=== PATIENT | female | born 1930 | race Caucasian/White ===

== ENCOUNTER 2019-08-12 11:26 | Inpatient (IN) | payer MEDICARE ==
[~2019-08-12] VITALS: Ht 167.6 cm; Wt 47.6 kg
[~2019-08-12 11:26] MED LIST: ASPI325 PO
[2019-08-12] MEDS ORDERED: GABA300 PO (12:24)
[2019-08-12] MEDS ORDERED: LEVSOD25 (12:24)
[2019-08-12 12:49] LABS: Hematocrit 49.6 % (33.0-51.0); Hemoglobin 16.7 g/dL (11.5-16.0); Mean Corpuscular HGB 29.6 pg (26.0-34.0); Mean Corpuscular HGB Conc 33.7 g/dL (31.5-36.5); Mean Corpuscular Volume 88 fL (80-100); RDW Standard Deviation 44.8 fL (35.1-46.3); Red Blood Cell Count 5.65 M/mm3 (3.80-5.20); White Blood Cell Count 32.24 K/mm3 (4.00-11.30)
[2019-08-12 12:50] LABS: Mean Platelet Volume 10.4 fL (9.1-12.4)
[2019-08-12 13:07] LABS: Alanine Aminotransfer (ALT/SGP 48 U/L (12-78); Albumin, Blood 3.4 g/dL (3.4-5.0); Albumin/Globulin Ratio 0.9 (0.8-1.8); Alk Phos 83 U/L (50-136); Anion Gap 7 mmol/L (6-16); Aspartate Aminotrans (AST/SGOT 139 U/L (12-37); Bilirubin, Total 1.1 mg/dL (0.1-1.0); Blood Urea Nitrogen 36 mg/dL (8-24); CO2, Blood 27 mmol/L (21-32); Calcium, Blood 9.2 mg/dL (8.5-10.1); Chloride, Blood 109 mmol/L (98-108); Creatinine, Blood 0.88 mg/dL (0.40-1.00); Globulin, Blood 3.9 g/dL (2.2-4.0); Glomerular Filtration Rate >60 (60-); Glucose, Blood 112 mg/dL (70-99); Potassium, Blood 4.3 mmol/L (3.5-5.5); Sodium, Blood 143 mmol/L (136-145); Total Protein, Blood 7.3 g/dL (6.4-8.2)
[2019-08-12 13:14] LABS: Creatine Kinase MB 29.8 ng/mL (0.0-3.6)
[2019-08-12] MEDS ORDERED: SYNTHROID50 MC1 PO (13:21)
[2019-08-12 13:43] LABS: BAND PERCENT MAN 2 % (0-8); BASOPHILS PERCENT MAN 0 % (0-2); EOSINOPHILS PERCENT MAN 0 % (0-6); LYMPHOCYTES ABSOLUTE MAN 15.47 K/mm3 (0.84-5.20); LYMPHOCYTES PERCENT MAN 48 % (21-46); MONOCYTES ABSOLUTE MAN 1.93 K/mm3 (0.16-1.47); MONOCYTES PERCENT MAN 6 % (4-13); NEUTROPHILS ABSOLUTE MAN 14.83 K/mm3 (1.96-9.15); SEG NEUTROPHILS PERCENT MAN 44 % (41-73); TOTAL CELLS COUNTED 100
[2019-08-12 13:46] LABS: Platelet Count 289 K/mm3 (150-400)
[2019-08-12 14:43] LABS: Bilirubin, Urine Neg (Neg); Blood, Urine 5+ (Neg); Glucose Qualitative, Urine Neg (Neg); Ketones, Urine 3+ (Neg); Leukocyte Esterase, Urine Neg (Neg); Nitrite, Urine Neg (Neg); Protein, Urine 2+ (Neg); Specific Gravity, Urine 1.025 (1.003-1.022); Urobilinogen, Urine 1+ (Normal)
[2019-08-12 14:51] LABS: Appearance, Urine Clear (Clear); Color, Urine Yellow (P-Yellow)
[2019-08-12 14:52] LABS: Amorphous Light (0-Heavy); White Blood Cells, Urine 0-2 /hpf (0-5)
[2019-08-12 14:53] LABS: Bacteria Few /hpf; Squamous Epithelial Cells Rare /hpf (Few)
--- NOTE | 2019-08-12 18:09 | NUR ---
SHIFT SUMMARY PT ARRIVED TO THE UNIT VIA STRETCHER FROM THE ED. SHE WAS ASSISTED TO BED AND ORIENTED TO ROOM AND STAFF. UPON ARRIVAL PT IS SHAKING,PALE, AND VERY STIFF AND PAINFUL WITH ANY MOVEMENT. O2 SAT WAS DIFFICULT TO OBTAIN AND RT BROUGHT AN EAR PROBE AND SHE IS SATING AT 91 % ON 2 LPM. SHE HAS A POZO IN PLACE. SHE WAS ASSISTED WITH A PARTIAL BED BATH SHE WAS MALODOROUS UPON ARRIVAL. DR HARRIS WAS NOTIFIED OF HER ARRIVAL AND CURRENT STATE AND CAME TO ASSESS THE PT AT THE BEDSIDE. PT HAS A LARGE BRUISE TO HER LEFT HIP AND LEFT SHOULDER ALONG WITH AN ABRASION TO HER LEFT HIP WHICH WAS PHOTOGRAPHED AND PUT IN CHART. ORDERED X RAYS REFLECTED IN HER CHART AND WE ARE AWAITING THEIR COMPLETION. SUCTION WAS SET UP AT BEDSIDE. PT WAS MADE NPO BY UNTIL SPEECH EVAL CAN BE COMPLETED. DNR ORDER WAS CONFIRMED WITH 2ND RN. HX WAS OBTAINED FROM DAUGHTER. PT WAS COVERED WITH WARM BLANKET WHICH HELPED WITH THE SHAKING BUT DID NOR COMPLETLY RESOLVE IT. SHE IS NOW RESTING IN BED. BED ALARM IS ON FOR SAFETY.
--- NOTE | 2019-08-13 04:24 | NUR ---
SUMMARY PT REMAINS CONFUSED. PT WAS GIVEN MEDS CRUSHED IN APPLESAUCE. PT DID REFUSE DAYANA PO MEDS. PT IS A ASPIRATION RISK AND WOULD BENEFIT W/ SPEECH EVAL. PT COMPLAINED OF MID BACK PAIN. PT STATES SHE DOES NOT KNOW IF IT IS CHRONIC OR NEW. PT GIVEN APAP W/ RELIEF. PT IS COOPERATIVE AND QUIET. PT IS FORGETFUL AND IS A HIGH FALL RISK. PT REMAINS IN SOFT WRIST RESTRAINTS. PT HAS WEAK COUGH AND HAS REQUIRES SUCTIONING TO CLEAR THROAT. PT HAS SLEPT OFF AND ON. PT CURRENTLY AWAKE AND IS QUIET. CALL LIGHT IN REACH AND BED ALARM ON. [facility]
[2019-08-13 05:23] LABS: Hematocrit 42.2 % (33.0-51.0); Hemoglobin 13.3 g/dL (11.5-16.0); Mean Corpuscular HGB Conc 31.5 g/dL (31.5-36.5); Mean Platelet Volume 10.1 fL (9.1-12.4); Platelet Count 194 K/mm3 (150-400); RDW Coefficient Variation 14.3 % (11.7-14.2); RDW Standard Deviation 47.8 fL (35.1-46.3); Red Blood Cell Count 4.59 M/mm3 (3.80-5.20); White Blood Cell Count 23.64 K/mm3 (4.00-11.30)
[2019-08-13 05:24] LABS: Mean Corpuscular Volume 92 fL (80-100)
[2019-08-13 05:40] LABS: Alanine Aminotransfer (ALT/SGP 34 U/L (12-78); Albumin, Blood 2.5 g/dL (3.4-5.0); Albumin/Globulin Ratio 0.8 (0.8-1.8); Alk Phos 52 U/L (50-136); Anion Gap 7 mmol/L (6-16); Aspartate Aminotrans (AST/SGOT 70 U/L (12-37); Bilirubin, Total 1.2 mg/dL (0.1-1.0); Blood Urea Nitrogen 32 mg/dL (8-24); Bun/Creatinine Ratio 32.6 (12.0-20.0); CO2, Blood 25 mmol/L (21-32); Calcium, Blood 7.9 mg/dL (8.5-10.1); Chloride, Blood 117 mmol/L (98-108); Creatinine, Blood 0.98 mg/dL (0.40-1.00); Glomerular Filtration Rate 57 (60-); Glucose, Blood 102 mg/dL (70-99); Sodium, Blood 149 mmol/L (136-145); Total Protein, Blood 5.5 g/dL (6.4-8.2); Vancomycin, Random 8.9 ug/mL
[2019-08-13 06:19] LABS: BAND PERCENT MAN 2 % (0-8); BASOPHILS PERCENT MAN 0 % (0-2); EOSINOPHILS PERCENT MAN 0 % (0-6); LYMPHOCYTES ABSOLUTE MAN 12.52 K/mm3 (0.84-5.20); LYMPHOCYTES PERCENT MAN 53 % (21-46); MONOCYTES ABSOLUTE MAN 1.18 K/mm3 (0.16-1.47); MONOCYTES PERCENT MAN 5 % (4-13); NEUTROPHILS ABSOLUTE MAN 9.92 K/mm3 (1.96-9.15); SEG NEUTROPHILS PERCENT MAN 40 % (41-73); TOTAL CELLS COUNTED 100
--- NOTE | 2019-08-13 08:05 | NUR ---
PT IS HAVING VERY WET SECRETIONS AND KEEP COUGHING AND HAVING A HARD TIME WITH THIS. PT IS NEEDING VERY FREQUENT SUCCIONING. DR FRANCI HARRIS NOTIFIED AND ST HAS BEEN ORDERED. PT WILL BE NPO UNTIL EVALUATED.
--- NOTE | 2019-08-13 17:08 | NUR ---
PT STARTED OUT SHIFT AOX1 AND STILL NEEDING RESTRAINTS. THE DAY PROGRESSED PT BECAME MUCH MORE ALERT UNTIL IT WAS DECIDED RESTRAINT ORDER WAS TO BE DC'D. ST EVALUATED PT AND NOW PT IS NPO PT IS HAVING A HARD TIME WITH DRY MOUTH STATES SHE WAS WATER SO BAD. LEMON SWABS ARE USED TO HELP MOISTURIZE HER MOUTH. PT STATES SHE JUST WANTS TO DRINK AND DOES NOT CARE IF SHE IS HAVING TROUBLE SWALLOWING.PT CAN NOW RECALL WHAT HAPPENED AT HER HOUSE AND SEEMS TO UNDERSTAND WHAT IS BEING SAID TO HER. PT WORKED WITH [employer] AND OT AND WAS A HEAVY ONE PERSON TO BEDSIDE COMMODE WITH [place]. PT STILL NOT USING CALL LIGHT AND WILL CALL OUT IF SHE WANTS SOMETHING. PT IS WATCHING TV AT THIS TIME. SÁNCHEZ IN PLACE CALL LIGHT WITHIN REACH WILL CONTINUE TO MONITOR.
--- NOTE | 2019-08-14 00:13 | NUR ---
PT. COUGHING AND NOTED TO HAVE LOTS OF SECRETIONS. PT. UNABLE TO COUGH UP ANY SPUTUM. ORAL SUCTIONING DONE AT THE BEDSIDE Q4HR AND PRN PER ORDER. DEEP NASAL SUCTIONING DONE BY RT. PT. NOTED TO HAVE BRIGHT RED BLOOD IN SUCTION CANISTER, APPEARS TO BE FROM RT NARE POST SUCTION. DR. LIU NOTIFIED OF PT. STATUS. PER PHYSICIAN WILL SEE WHAT CAN BE DONE FOR PT. PT. PLACED ON HUMIDIFIED O2. TOLERATING WELL. WILL CONT TO MONITOR.
--- NOTE | 2019-08-14 04:18 | NUR ---
SHIFT SUMMARY- PT. ALERT TO SELF WITH INTERMITTENT CONFUSION, HAS BEEN NPO THIS SHIFT. PT. COUGHING MOST OF THE NIGHT, ATTEMPTING TO COUGH UP SPUTUM BUT UNABLE TO. ORAL SUCTIONING DONE AT THE BEDSIDE WITH MINIMAL EFFECT. DEEP SUCTIONING DONE BY RT. PT. NOTED TO HAVE BRIGHT RED BLOOD IN SUCTION CANISTER, PER RT FROM THE RT NARE. HOSPITALIST WAS AMDE AWARE (SEE NEW ORDERS IN EMAR). PT. PLACED ON HUMIDIFIED O2. TOLERATING IV CLINIMIX WELL, DENIES ANY NEEDS AT THIS TIME. CALL LIGHT WITHIN REACH, SIDE RAILS WITHIN REACH, AND BED ALARM ON. WILL CONT TO MONITOR.
[2019-08-14 04:45] LABS: Hematocrit 37.7 % (33.0-51.0); Mean Corpuscular HGB 29.7 pg (26.0-34.0); Mean Corpuscular HGB Conc 31.8 g/dL (31.5-36.5); Mean Corpuscular Volume 93 fL (80-100); Mean Platelet Volume 9.7 fL (9.1-12.4); Platelet Count 176 K/mm3 (150-400); RDW Coefficient Variation 14.5 % (11.7-14.2); RDW Standard Deviation 50.2 fL (35.1-46.3); Red Blood Cell Count 4.04 M/mm3 (3.80-5.20); White Blood Cell Count 17.24 K/mm3 (4.00-11.30)
[2019-08-14 05:04] LABS: Alanine Aminotransfer (ALT/SGP 29 U/L (12-78); Albumin, Blood 2.2 g/dL (3.4-5.0); Albumin/Globulin Ratio 0.7 (0.8-1.8); Alk Phos 48 U/L (50-136); Anion Gap 6 mmol/L (6-16); Aspartate Aminotrans (AST/SGOT 38 U/L (12-37); Bilirubin, Total 0.7 mg/dL (0.1-1.0); Blood Urea Nitrogen 33 mg/dL (8-24); Bun/Creatinine Ratio 42.5 (12.0-20.0); CO2, Blood 25 mmol/L (21-32); CPK Creatine Kinase 406 U/L (26-193); Calcium, Blood 8.2 mg/dL (8.5-10.1); Chloride, Blood 117 mmol/L (98-108); Creatinine, Blood 0.78 mg/dL (0.40-1.00); Glomerular Filtration Rate >60 (60-); Glucose, Blood 109 mg/dL (70-99); Potassium, Blood 3.5 mmol/L (3.5-5.5); Sodium, Blood 148 mmol/L (136-145); Total Protein, Blood 5.2 g/dL (6.4-8.2)
[2019-08-14 05:19] LABS: BASOPHILS PERCENT MAN 0 % (0-2); EOSINOPHILS ABSOLUTE MAN 0.17 K/mm3 (0.00-0.68); EOSINOPHILS PERCENT MAN 1 % (0-6); LYMPHOCYTES ABSOLUTE MAN 8.79 K/mm3 (0.84-5.20); LYMPHOCYTES PERCENT MAN 51 % (21-46); MONOCYTES ABSOLUTE MAN 0.86 K/mm3 (0.16-1.47); MONOCYTES PERCENT MAN 5 % (4-13); NEUTROPHILS ABSOLUTE MAN 7.41 K/mm3 (1.96-9.15); SEG NEUTROPHILS PERCENT MAN 43 % (41-73); TOTAL CELLS COUNTED 100
--- NOTE | 2019-08-14 06:18 | NUR ---
PT. COUGHING UP BLOOD. C/O PAIN IN THROAT. CALLED DR. LIU AND MADE AWARE. NEW ORDERS RECEIVED. WILL CONT TO MONITOR.
--- NOTE | 2019-08-14 17:37 | NUR ---
SHIFT SUMMARY PT HAS BEEN SLEEPING OFF AND ON THIS SHIFT. PT MORE CONFUSED THIS AFTERNOON/EVENING AND YELLING OUT FOR DAUGHTER. THIS RN REORIENTED PT TO TIME AND PLACE. ORAL CARE PRN WITH SUCTION SWABS. POZO PATENT AND DRAINING. NO ACUTE CHANGES AT THIS TIME. WILL CONTINUE TO MONITOR PT. CALL LIGHT IN REACH. BED ALARM ON FOR SAFETY. WILL CONTINUE TO MONITOR.
--- NOTE | 2019-08-15 04:19 | NUR ---
SHIFT SUMMARY PT REMAINS CONFUSED THIS EVENING. CONFUSION SLIGHTLY WORSE LATER IN THE EVENING. PT BELIEVED SHE WAS AT HOME AND WHEN ATTEMPTING TO REORIENT PT ONLY SAID, "I DON'T BELIEVE YOU". PT HAVING LARGE AMOUNT OF SECRETIONS. FREQUENT SUCTIONING REQUIRED. ORAL CARE PREFORMED WELL THROUGHOUT THE NIGHT. PT FREQEUNTLY ASKS FOR SOMETHING TO DRINK OR EAT. UPSET THAT SHE CANNOT EVEN AFTER EDUCATING ON REASONING. POZO CATHETER IN PLACE. PATENT AND DRAINING. PT HAS SCATTERED BUMPS AND BRUISES THROUGHOUT HER BODY. PT REMAINED ON 2 L O2 NC WITH O2 SATS IN THE LOW TO MID 90'S. NO COMPLAINTS OF PAIN. VITAL SIGNS STABLE. WILL CONTINUE TO MONITOR AND REPORT TO DAY RN.
[2019-08-15 04:32] LABS: BASOPHILS ABSOLUTE AUTO 0.04 K/mm3 (0.00-0.23); BASOPHILS PERCENT AUTO 0 % (0-2); EOSINOPHILS ABSOLUTE AUTO 0.09 K/mm3 (0.00-0.68); EOSINOPHILS PERCENT AUTO 1 % (0-6); Hematocrit 41.5 % (33.0-51.0); Hemoglobin 12.9 g/dL (11.5-16.0); Mean Corpuscular HGB 28.7 pg (26.0-34.0); Mean Corpuscular HGB Conc 31.1 g/dL (31.5-36.5); Mean Corpuscular Volume 92 fL (80-100); Mean Platelet Volume 9.6 fL (9.1-12.4); Platelet Count 158 K/mm3 (150-400); RDW Coefficient Variation 14.3 % (11.7-14.2); RDW Standard Deviation 48.1 fL (35.1-46.3); Red Blood Cell Count 4.49 M/mm3 (3.80-5.20); White Blood Cell Count 19.63 K/mm3 (4.00-11.30)
[2019-08-15 04:41] LABS: IMMATURE GRAN ABSOLUTE AUTO 0.12 K/mm3 (0.00-0.10); IMMATURE GRAN PERCENT AUTO 1 % (0-1); LYMPHOCYTES ABSOLUTE AUTO 9.01 K/mm3 (0.84-5.20); LYMPHOCYTES PERCENT AUTO 46 % (21-46); MONOCYTES ABSOLUTE AUTO 1.27 K/mm3 (0.16-1.47); MONOCYTES PERCENT AUTO 7 % (4-13); NEUTROPHILS PERCENT AUTO 46 % (41-73)
[2019-08-15 04:52] LABS: Alanine Aminotransfer (ALT/SGP 31 U/L (12-78); Albumin, Blood 2.3 g/dL (3.4-5.0); Albumin/Globulin Ratio 0.7 (0.8-1.8); Alk Phos 76 U/L (50-136); Anion Gap 10 mmol/L (6-16); Aspartate Aminotrans (AST/SGOT 34 U/L (12-37); Bilirubin, Total 1.2 mg/dL (0.1-1.0); Blood Urea Nitrogen 20 mg/dL (8-24); Bun/Creatinine Ratio 27.6 (12.0-20.0); CO2, Blood 23 mmol/L (21-32); Calcium, Blood 7.9 mg/dL (8.5-10.1); Chloride, Blood 115 mmol/L (98-108); Creatinine, Blood 0.72 mg/dL (0.40-1.00); Globulin, Blood 3.5 g/dL (2.2-4.0); Glomerular Filtration Rate >60 (60-); Glucose, Blood 85 mg/dL (70-99); Potassium, Blood 3.5 mmol/L (3.5-5.5); Sodium, Blood 148 mmol/L (136-145); Total Protein, Blood 5.8 g/dL (6.4-8.2)
--- NOTE | 2019-08-15 11:56 | NUR ---
Tele: SVT 150's Received call from [employer] RE 20 second SVT in 150's. Dr. Otoole notified, no change in patient condition. Per Dr. Otoole, telemetry can be d/c due to patient transitioning to comfort care.
--- NOTE | 2019-08-15 13:26 | NUR ---
SUCTIONING PROVIDED, NECTAR AND HONEY THICKENED FLUIDS PROVIDED PO. FOLLOWING DIRECTIONS WITH SWALLOWING WELL. PATIENT APPEARS TO HAVE MINIMAL ASPIRATION WHEN FOLLOWING DIRECTIONS (SMALL SIPS, CHIN TUCK, AND HEAD TURNED TO LEFT).
--- NOTE | 2019-08-15 14:48 | NUR ---
Pt sitting up in bed splinting her side. very anxious and painfull. Wants to take sips but coughs it up. Assisted nursing with prn pain meds. did oral care gave pt flozvored swabs so she can get some taste and hydration. pt neck tight assited with positioning. May need a consistant dosing to get pain at an acceptable level will reassess. theraputic tiem with pt reminissing and looking out the window. put her cardenas where se can see them for some diversion.
--- NOTE | 2019-08-15 16:00 | NUR ---
MEDICATED FOR PAIN, SUCTION AND ORAL SWABS FOR SECRETIONS. REPOSITION TOLERATED.
--- NOTE | 2019-08-15 17:14 | NUR ---
Medicated for pain and nausea per EMAR. Patient had bedbath, cath care, attends changed, pericare, shampoo, and repositioned x 2 assist. Palliative Care RN Theodora at bedside. Oral care provided and suctioned.
--- NOTE | 2019-08-15 17:35 | NUR ---
pt having some mild nausea. and still some discomfort. rectal tylenol given and nausea meds. Review with nursing may need more roxinal to facilitate cough. Nausea may be from narcotics or increased coughing she is getting up some thick secretions. pt very fragile they are having to position her carefully.
--- NOTE | 2019-08-15 18:33 | NUR ---
Shift Summary A/O to self and family. Patient does not fully comprehend the reason for her admission stating that her daugter brought her in for unknown reasons. Tele has been d/c'd. C/o pain throughout body, medicated per EMAR with good results. Patient continues to aspirate even on honey thick liquids, less so when highly supervised and cued. Oral care has been completed and suction as needed. Patient has poor cough reflex and unable to cough up much, lung sounds are coarse and wet. Comfort care, will continue to monitor.
--- NOTE | 2019-08-16 04:25 | NUR ---
SHIFT SUMMARY PT PLEASANTLY CONFUSED. PT DID NOT KNOW WHERE SHE WAS AT AND MULTIPLE TIMES STATED, "I DONT WANT TO BE HERE". ATTEMPTED TO PROVIDE HONEY THICK LIQUIDS TO PT. PT DID NOT TOLERATE VERY WELL. WITH MOST SWALLOWS PT WOULD COUGH AND CHOKE ON THE LIQUID. PT SUCTIONED NEEDED. MEDICATED X 1 W/ 10 MG ROXICODONE FOR REPORTED PAIN. OTHERWISE PT SLEPT THROUGH MOST OF THE NIGHT AND APPEARED COMFORTABLE. NO ACUTE CHANGES THIS SHIFT. WILL CONTINUE TO MONITOR.
--- NOTE | 2019-08-16 07:00 | NUR ---
ASSUMED CARE OF PT- BEDSIDE REPORT COMPLETED WITH NIGHT RN LALITA. PER REPORT PT WAS MEDICATED JUST PRIOR TO SHIFT CHANGE FOR PAIN. PT SLEEPING BUT WOKE TO STAFF VOICES. STATED PAIN, BUT WENT BACK TO SLEEP IN MOMENTS. WILL CTM. PT APPEARS COMFORTABLE AND AT REST AT SHIFT CHANGE
--- NOTE | 2019-08-16 09:15 | NUR ---
PT C/O PAIN AND APPEARS TO BE IN 8/10 PAIN MEDICATED WITH OXY 10MG DOSE RECOMENDED BY PRIOR RN.
--- NOTE | 2019-08-16 10:55 | NUR ---
Review with nursing pts pain response and needs. will follow up with family.
--- NOTE | 2019-08-16 11:15 | NUR ---
PT PAIN STILL NOT WELL MANAGED WITH A SECOND DOSE OF OXY AT 10MG. MEDICATED WITH TYLENOL SUPPOSITORY AND REPOSITIONED PT FOR COMFORT.
--- NOTE | 2019-08-16 12:20 | NUR ---
MEDICATED PT WITH OXY, INCREASED TO DOSE TO 15MG PT STILL IN PAIN SAYING "I'LL BE GOOD" "PLEASE, ANYTHING THAT WILL HELP." REPOSITIONED PT ON MULTIPLE PILLOWS AFTER MEDICATION WAS ADMINISTERED (ABOUT 1300). PT STATED SHE WAS COMFORTABLE AFTER THE REPOSITION, WILL CTM.
--- NOTE | 2019-08-16 14:18 | NUR ---
Review of pt pain and symtpoms with physician. Will add toradol. and look at poistioning.
--- NOTE | 2019-08-16 14:45 | NUR ---
attempted to call family with update
--- NOTE | 2019-08-16 16:00 | NUR ---
PT SLEEPING SOUNDLY, RESP E/U ON ROOM AIR. PT APPEARS PALE BUT NO MODELING IS NOTED AT THIS TIME. APPEARS TO BE RESTING COMFORTABLY.
--- NOTE | 2019-08-16 16:40 | NUR ---
PT SLEEPING SOUNDLY AND MOANING IF IN PAIN. WOKE HER TO DETERMINE IF HER PAIN REQUIRED PAIN MEDICATION AGAIN. PT WOKE AND STATED SHE FEELS BETTER RIGHT NOW AND HER PAIN IS OK. APPOLOGIZED FOR WAKING HER. WILL CTM. PT PHONE HAD RANG EARLIER AND SHE STATED TO STAFF THAT SHE DOES NOT WANT TO TALK TO ANYONE RIGHT NOW. PAIN APPEARS WELL MANAGED AT THIS TIME WILL CTM.
--- NOTE | 2019-08-16 16:52 | NUR ---
spoke with patients daughters and updated them with plan of care. Review with [place] director career services discharge plan.
--- NOTE | 2019-08-16 18:00 | NUR ---
PT AWAKE AND STATED THAT SHE IS BEGINING TO HURT AGAIN IN HER RIGHT CHEST. PT ASKED FOR MORE PAIN MEDICATION AT THIS TIME TO PREVENT IT FROM GETTING WORSE. MEDICATED WITH 10 MG SL OXY PAIN IS MORE CONTROLED AT THIS TIME THAN IT WAS PRIOR. PT GRIMACED WHEN SHE MOVED SO STAFF WILL WAIT FOR MEDICATION TO WORK THEN WE WILL REPOSITION HER.
--- NOTE | 2019-08-16 19:24 | NUR ---
PT WOKE TO STAFF VOICES. BEDSIDE REPORT COMPLETED WITH NIGHT VIJI COBIAN. PT PAIN AGAIN SEEMS TO BE WELL MANAGED. PT REPOSITIONED TO LEFT BACK. MULTIPLE PILLOWS IN PLACE. PT ATTEMPTED TO CALL HER DAUGHTER THERE WAS NO ANSWER AND SHE DECLINED TO LEAVE A MESSAGE.
--- NOTE | 2019-08-17 06:43 | NUR ---
SHIFT SUMMARY PATIENT WAS ABLE TO SLEEP COMFORTABLY MOST OF THE NIGHT. ONLY NEEDED TO BE MEDICATED ONCE FOR PAIN AND DID NOT HAVE ANY ISSUES BREATHING. REQUIRED NO SUCTIONING OVERNIGHT. IV PATENT AND FLUSHED. BED IN LOWEST POSITION WITH WHEELS LOCKED AND ALARM ON. CALL LIGHT WITHIN REACH. REPORT GIVEN TO ONCOMING RN.
--- NOTE | 2019-08-17 07:50 | NUR ---
CC ASSESSMENT: MEDICATED FOR PAIN PER EMAR. NO DYSPNEA/SOB/SECRETIONS. NO FAMILY PRESENT. WCTM.
--- NOTE | 2019-08-17 10:02 | NUR ---
CC ASSESSMENT: MEDICATED FOR PAIN PER EMAR. NO DYSPNEA/SOB/SECRETIONS. NO FAMILY PRESENT. WCTM.
--- NOTE | 2019-08-17 12:54 | NUR ---
CC ASSESSMENT: PT IN NO AO APPRENT DISTRESS. NO DYSPNEA/SOB/SECRETIONS. NO FAMILY PRESENT. WCTM.
--- NOTE | 2019-08-17 15:05 | NUR ---
CC ASSESSMENT: PT IN NO APPARENT DISTRESS. NO DYSPNEA/SOB/SECRETIONS. NO FAMILY PRESENT. WCTM.
--- NOTE | 2019-08-17 15:06 | NUR ---
CC ASSESSMENT: MEDICATED FOR ANXIETY PER EMAR. NO DYSPNEA/SOB/SECRETIONS. NO FAMILY PRESENT. WCTM.
--- NOTE | 2019-08-17 17:07 | NUR ---
CC ASSESSMENT: PT IN NO APPARENT DISTRESS. NO DYSPNEA/SOB/SECRETIONS. NO FAMILY PRESENT. WCTM.
--- NOTE | 2019-08-17 18:45 | NUR ---
SHIFT SUMMARY: NO ACUTE CHANGES TO REPORT THIS SHIFT. COMFORT CARE MEASURES CONTINUING. MEDICATED FOR PAIN & ANXIETY PER EMAR. WCTM.
--- NOTE | 2019-08-18 07:10 | NUR ---
SHIFT SUMMARY PATIENT ABLE TO SLEEP WELL MOST OF THE NIGHT. WOKE UP AROUND 0550 AGGITATED. MEDICATED PATIENT PER EMAR FOR ANXIETY. IV PATENT AND FLUSHED. BED IN LOWEST POSITION WITH WHEELS LOCKED. CALL LIGHT WITHIN REACH. REPORT GIVEN TO ONCOMING VIJI.
--- NOTE | 2019-08-18 07:56 | NUR ---
CC ASSESSMENT: NO C/O PAIN / PT IN NO APPARENT DISTRESS. NO DYSPNEA/SOB/SECRETIONS. POZO PATENT & DRAINING. NO FAMILY PRESENT. WCTM.
--- NOTE | 2019-08-18 13:04 | NUR ---
CC ASSESSMENT: NO C/O PAIN. NO DYSPNEA/SOB/SECRETIONS. NO FAMILY PRESENT. WCTM.
--- NOTE | 2019-08-18 13:04 | NUR ---
CC ASSESSMENT: PT IN NO APPARENT DISTRESS. NO DYSPNEA/SOB/SECRETIONS. NO FAMILY PRESENT. WCTM.
--- NOTE | 2019-08-18 17:22 | NUR ---
CC ASSESSMENT: NO C/O PAIN / PT IN NO APPARENT DISTRESS. NO DYSPNEA/SOB/SECRETIONS. NO FAMILY PRESENT. WCTM.
--- NOTE | 2019-08-18 17:23 | NUR ---
CC ASSESSMENT: PT IN NO APPARENT DISTRESS. NO DYSPNEA/SOB/SECRETIONS. NO FAMILY PRESENT. WCTM.
--- NOTE | 2019-08-18 17:25 | NUR ---
CC ASSESSMENT: MEDICATED FOR PAIN PER EMAR. NO DYSPNEA/SOB/SECRETIONS. NO FAMILY PRESENT. WCTM.
--- NOTE | 2019-08-18 19:11 | NUR ---
Clinical Visit: Pt is displaying several signs of discomfort at time of visit. She reports that she has "a little" pain. She is uncomfortable in bed and would like to turn and reposition. Assisted Ilya, nurse, with repositioning. He administers 20mg roxanol. Pt shows signs of reduction in discomfort and improved pain level.
--- NOTE | 2019-08-18 19:35 | NUR ---
SHIFT SUMMARY: NO ACUTE CHANGES TO REPORT THIS SHIFT. COMFORT CARE MEASURES CONTINUING. MEDICATED FOR PAIN & ANXIETY PER EMAR. LIDOCAINE PATCH TO R RIBS. REPORT GIVEN TO ONCOMING RN.
--- NOTE | 2019-08-18 19:42 | NUR ---
PATIENT SLEEPING IN HER BED AND APPEARS COMFORTABLE WITH NO SIGNS OF PAIN OR DIFFICULTY BREATHING.
--- NOTE | 2019-08-18 22:21 | NUR ---
PATIENT'S ATTENDS CHANGED, ALEXANDRU CARE AND CATH CARE COMPLETED. PATIENT REPOSITIONED.
--- NOTE | 2019-08-19 04:36 | NUR ---
PATIENT WOKE UP AND WAS TALKING TO THIS RN. SHE HAD NO COMPLAINTS OF PAIN AND SEEMED COMFORTABLE.
--- NOTE | 2019-08-19 05:58 | NUR ---
SHIFT SUMMARY PATIENT SLEPT MOST OF THE NIGHT AND WAS COMFORTABLE. PATIENT HAD NO COMPLAINT OF PAIN AND DID NOT NEED ANY PRN MEDICATION. IV PATENT AND FLUSHED. BED IN LOWEST POSITION WITH WHEELS LOCKED AND ALARM ON. CALL LIGHT WITHIN REACH. REPORT GIVEN TO ONCOMING RN.
--- NOTE | 2019-08-19 10:14 | NUR ---
PT RESTING IN BED WITH EYES CLOSED.
--- NOTE | 2019-08-19 11:29 | NUR ---
PT REPORTING DRY MOUTH, PT GIVEN FOAM MOUTH SWAB WITH WATER ON IT. PT REPORTS THIS HELPING. LIDOCAINE PATCH PLACED FOR PAIN ON RIGHT CHEST WALL. BED IN LOWEST POSITION WITH BED ALARM ON.
--- NOTE | 2019-08-19 12:54 | NUR ---
LATE ENTRY FOR MORNING ASSESSMENT AT 0900. LUNGS ARE DIMINISHED BUT CLEAR. PT RESTING COMFORTABLE IN BED. NO EDEMA NOTED. IV FLUSHED WITH 10ML NORMAL SALINE AND IS WNL. IV HAS WINDOW DRESSING. BED IN LOWEST POSITION WITH BED ALARM ON.
--- NOTE | 2019-08-19 13:34 | NUR ---
PT RESTING IN BED WITH EYES CLOSED. BED ALARM ON, CALL LIGHT IN REACH.
--- NOTE | 2019-08-19 16:07 | NUR ---
Initial spiritual care note: Mrs. Rodriguez was minimally responsive. She complained of pain and thirst. Provided sponge to moisten mouth. Barely wet at all. She choked on this small amount. She was in and out of sleep and far too weak to engage in meaningful conversation. She appears quite frail. Prayer provided with Aretha's permission. Informed RN of pt's pain. I will remain available to pt and family.
--- NOTE | 2019-08-19 16:47 | NUR ---
Comfort Measures: Pt is sitting up in bed. She is being supervised by nurse, Donavan, while she is self suctioning. No s/s of distress noted at this time, no concerns from nursing. Reviewed chart. D/C'd routine medications that have not been given for several days. Reviewed notes. Palliative care to remain available.
--- NOTE | 2019-08-19 17:57 | NUR ---
LATE ENTRY FOR 1730 PT'S FAMILY ARRIVED AND ARE CURRENTLY AT THE PT'S BEDSIDE. PT DENIES ANY PAIN AT OR NAUSEA AT THIS TIME. PT'S FAMILY EDUCATED ON ROOM AND CALL LIGHT. FAMILY MEMBERS DENY ANY NEEDS AT THIS TIME. CALL LIGHT IS WITHIN REACH.
--- NOTE | 2019-08-19 18:25 | NUR ---
SHIFT SUMMARY: PT SLEEPING COMFORTABLY FOR MOST OF THE DAY. PT MEDICATED PER EMAR FOR PAIN REPORTED THROUGHOUT THE DAY. PT ALSO GIVEN LORAZEPAM FOR RESTLESSNESS THIS AM. PT'S FAMILY ARRIVED THIS EVENING AND ARE AT THE BEDSIDE WITH PT. BED BATH GIVEN TO PT TODAY. LIDOCAINE PATCH ALSO PLACED ON PT'S RIGHT CHEST WALL FOR PAIN. NO NAUSEA REPORTED.
--- NOTE | 2019-08-19 20:50 | NUR ---
RESTING QUIETLY AT THIS TIME. DAUGHTERS WENT HOME. CALL LIGHT IN REACH
--- NOTE | 2019-08-19 21:10 | NUR ---
ASSISTED BACK INTO BED (LEGS HANGING OUT OF BED) CONFUSED. REPOSITIONED. BED ALARM ON. QUICK TO GO BACK TO SLEEP. CALL LIGHT IN REACH
--- NOTE | 2019-08-19 22:32 | NUR ---
RESTING QUIETLY. CALL LIGHT IN REACH
--- NOTE | 2019-08-20 04:00 | NUR ---
SHIFT SUMMARY PT REMAINS ON COMFORT CARE, WAS AWAKE ERALIER IN THE SHIFT AND MADE ATTEMPT TO GET OUT OF BED. VOICED PAIN, RECEIVED ANALGESIC PER MD ORDERS - SEE MAR FOR DETAILS. MED EFFECTIVE, HAS BEEN RESTING QUIETLY AFTERWARDS. CALL LIGHT IN REACH. POZO DRAINING.
--- NOTE | 2019-08-20 06:10 | NUR ---
AWAKE AT INTERVALS. CALL LIGHT IN REACH
--- NOTE | 2019-08-20 14:54 | NUR ---
sat pt up to edge of bed with good tolerance. pain better controlled. pt very weak pt back to bed and fell asleep. plan is home tomorrow
--- NOTE | 2019-08-20 15:46 | NUR ---
Routine spiritual care note: I met with pt's dtr, Ebonie, at bedside. She was giving her mother sips of water, and pt coughed/choked upon every small swallow. Still, pt insisted she wanted more. Ciara appears devoted and reports a strong derick. she admits concern regarding pt's salvation. Provided gentle spiritual direction on God's jacqueline at end of life. Prayer also offered and accepted. Ebonie is busy preparing pt's home for her return tomorrow. Pt appears quite frail and confused. She denied pain. I will remain available.
--- NOTE | 2019-08-20 18:10 | NUR ---
COMFORT CARE SHIFT SUMMARY PATIENT MEDICATED X3 FOR PAIN. NEW ORDERS FOR FENTANYL PATCH AND ADDITIONAL LIDOCAINE PATCH TO SACRUM. POZO PATENT AND DRAINING. FAMILY VISITED TODAY. HOSPICE DISCHARGE PLANNED FOR MONDAY. CALL LIGHT IN REACH.
--- NOTE | 2019-08-21 02:40 | NUR ---
COMFORT CARE 0240 APPEARS TO BE COMFORTABLE AND RESTING. BED IN LOWEST POSITION; ALARM ON. CALL LIGHT AND SUCTION WITHIN REACH. WCTM.
--- NOTE | 2019-08-21 05:12 | NUR ---
SHIFT SUMMARY NO ACUTE CHANGES OVERNIGHT. PT HAS PERIODS OF ANXIETY WHERE SHE CALLS OUT, AND ATTEMPTS TO CLIMB OUT OF BED BY SWINGING HER LEGS OFF OF THE SIDE OF THE BED. SHE REPEATS A LOT THROUGH THE NIGHT "I WANT TO GET OUT OF HER". PT IS DIFFICULT TO REDIRECT AND ORIENT AT TIMES. PT REPORTS PAIN IN HER UPPER CHEST AND RIGHT SIDE. MEDICATED PER EMAR WITH AFFECT. PT ALSO MEDICATED PRN FOR ANXIETY. SOME SKIN BREAKDOWN NOTED ON LEFT HIP AND NEAR HER COCCYX THIS SHIFT. MEPILEX PLACED. POZO IN PLACE PATENT AND DRAINING. COMFORT ASSESSED T/O SHIFT, AND PT REPOSITIONED FREQUENTLY. NO CALLS FROM FAMILY THIS SHIFT. BED IN LOWEST POSITION, CALL LIGHT WITHIN REACH. WILL CONTINUE TO MONITOR AND REPORT TO ONCOMING RN.
--- NOTE | 2019-08-21 14:30 | NUR ---
Pt resting finally able to lay on her right side.
--- NOTE | 2019-08-21 16:32 | NUR ---
Routine spiritual care note: Aretha appears more frail today. She awakened easily to voice, smiled easily, but did not seem to be able to engage in conversation. She denies pain/fear. Prayer for peace provided. Director Of Vocational Guidance services will remain available.
--- NOTE | 2019-08-21 18:07 | NUR ---
SHIFT SUMMARY MEDICATED FOR PAIN AND ANXIETY SEVERAL TIMES TODAY. FAMILY IN TO SEE PT. PT CALM WHILE FAMILY AT BEDSIDE. FENTANYL PATCH FELL OFF THIS MORNING AND NEW PATCH APPLIED. COUGHING WITH ANY SIP OF LIQUID OR BITE OF FOOD. SUCTIONED NEEDED. REPOSITIONED FOR COMFORT.
--- NOTE | 2019-08-21 18:35 | NUR ---
family in to see patient. Filemon at her decline. Review of her care and tolerance. theraputic time with family to they expressed stress and frustration. Reviewed her lack of tolerance of po intak and pain needs. They are expressing family stress at her daughter not sharing information. Advised then on contacting her hospice team to help with visitation and family discord. left them to visit with her.
--- NOTE | 2019-08-21 20:05 | NUR ---
COMFORT CARE APPEARS TO BE UNCOMFORTABLE UPON ENTRY. STATES PAINFUL; MEDICATED PER EMAR. ORAL CARE COMPLETED. HAS SUCTION ON HAND. BED IN LOWEST POSITION. CALL LIGHT IN REACH. WCTM.
--- NOTE | 2019-08-21 22:20 | NUR ---
COMFORT CARE 2220 APPEARS TO BE UNCOMFORTBALE. MEDICATED PER EMAR. NO ACUTE CHANGES AT THIS TIME. BED IN LOWEST; ALARM ON. CALL LIGHT WITHIN REACH. WCTM.
--- NOTE | 2019-08-22 00:38 | NUR ---
COMFORT CARE 0038 APPEARS TO BE RESTING. NO ACUTE CHANGES AT THIS TIME. BED IN LOWEST POSITION. CALL LIGHT WITHIN REACH. TM.
--- NOTE | 2019-08-22 04:40 | NUR ---
COMFORT CARE APPEARS TO BE RESTING. NO ACUTE CHANGES NOTED AT THIS TIME. BED IN LOWEST POSITION; ALARM ON. CALL LIGHT AND SUCTION WITHIN REACH. TM.
--- NOTE | 2019-08-22 05:08 | NUR ---
SHIFT SUMMARY ALERT, ANSWERS QUESTIONS APPROPRIATELY. SLOW TO RESPOND. ABLE TO MAKE NEEDS KNOWN. C/O PAIN/DISCOMFORT TO CHEST/NECK; MEDICATED PER EMAR. APPEARED TO REST MUCH OF NIGHT. ORAL CARE COMPLETED. REPOSITIONED T/O SHIFT. NO ACUTE CHANGES NOTED. BED IN LOWEST POSITION; ALARM ON. CALL LIGHT, BELONGINGS AND SUCTION WITHIN REACH. WCTM. REPORT TO ONCOMING RN.
[2019-08-22] MEDS ORDERED: ATROPINE SULFATE2 ML SL (08:34)
[2019-08-22] MEDS ORDERED: LIDOCAINE PAIN1 EACH TOP (08:35)
[2019-08-22] MEDS ORDERED: Ativan1 MG SL (08:36)
[2019-08-22] MEDS ORDERED: OXYCODONE10 MG/0.5 SL (08:51)
[2019-08-22] MEDS ORDERED: FENT50TP TOP (08:52)
[2019-08-22] MEDS ORDERED: Transderm-Scop1 EACH TOP (08:52)
--- NOTE | 2019-08-22 10:10 | NUR ---
PT REPOSITIONED, BRIEF CHANGED AND POZO BAG CHANGED. THIS NURSE PLACED A 50MG PATCH PLACED ON LEFT UPPER CHEST, LIDOCAINE PATCH PLACED OF RIGHT HIP AND ONE LIDOCAINE PATCH PLACED ON LEFT POSTERIOR SHOULDER. ORAL CARE PERFORMED AND ORAL PAIN MEDS GIVEN PRIOR TO TRANSPORT FOR COMFORT.
--- NOTE | 2019-08-22 10:15 | NUR ---
PT DISCHARGE SUMMARY PT ON COMFORT CARE AND D/C HOME WITH HOSPICE SERVICES, THIS NURSE NOTIFIED HER DAUGHTER PRIOR TO D/C. BELONGINGS AND HARD SCRIPTS SENT WITH PT, COPY ON CHART FOR HYDROMORPHONE, FEYNTANYL AND LARZEPAM. [employer] PROVIDING TRANSPORT VIA [facility].
== END 2019-08-22 10:00 | disposition hospice, home (50) | DRG 557 ==
LOC: ER 11:26 → MEDS 14:29
PROVIDERS: Physician Assistant; ADMIT Family Medicine
DX: M62.82 Rhabdomyolysis (principal); J69.0 Pneumonitis due to inhalation of food and vomit; E87.2 Acidosis; Z68.1 Body mass index [BMI] 19.9 or less, adult; E44.0 Moderate protein-calorie malnutrition; E87.0 Hyperosmolality and hypernatremia; C91.10 Chronic lymphocytic leukemia of B-cell type not having achieved remission; E03.9 Hypothyroidism, unspecified; E78.5 Hyperlipidemia, unspecified; M19.90 Unspecified osteoarthritis, unspecified site; Z96.652 Presence of left artificial knee joint; Z66 Do not resuscitate; E86.0 Dehydration; G35 Multiple sclerosis; G30.9 Alzheimer's disease, unspecified; F02.80 Dementia in other diseases classified elsewhere, unspecified severity, without behavioral disturbance, psychotic disturbance, mood disturbance, and anxiety; R62.7 Adult failure to thrive; K21.9 Gastro-esophageal reflux disease without esophagitis; Z51.5 Encounter for palliative care; E88.09 Other disorders of plasma-protein metabolism, not elsewhere classified; W18.2XXA Fall in (into) shower or empty bathtub, initial encounter; Y93.9 Activity, unspecified; Y92.002 Bathroom of unspecified non-institutional (private) residence as the place of occurrence of the external cause; R13.10 Dysphagia, unspecified
CPT/HCPCS: 31720; 36415; 51702; 70450; 71045; 71046; 72125; 73502; 80053; 80202; 81001; 82550; 82553; 83605; 85025; 87040; 92526; 92610; 94760; 96361-59; 96365-59; 97110; 97163; 97166; 97530; 97535; 99285-25; A9270-GY; J1650; J1885; J2060; J2405; J2543; J3370; J7030